=== PATIENT | male | born 2000 | race Caucasian/White ===

== ENCOUNTER 2025-05-16 10:06 | Emergency (ER) | payer OTHER, SELFPAY ==
[~2025-05-16] VITALS: Ht 182.9 cm; Wt 99.4 kg
[2025-05-16] MEDS: KETOROLAC 60 MG/2 ML VIAL IM ONE (10:46)
[2025-05-16 11:25] VITALS: BP 122/79; TEMP 97.6; O2SAT 100
== END 2025-05-16 11:31 | disposition home or self-care (01) ==
LOC: M ED 10:06
DX: S60.221A Contusion of right hand, initial encounter (principal); S63.656A Sprain of metacarpophalangeal joint of right little finger, initial encounter; Y92.9 Unspecified place or not applicable; Y93.9 Activity, unspecified; Y99.0 Civilian activity done for income or pay; W22.09XA Striking against other stationary object, initial encounter
CPT/HCPCS: 73130; 96372; 99283; J1885